=== PATIENT | male | born 1980 | race Two or more races ===

== ENCOUNTER 2025-07-07 20:03 | Emergency (ER) | payer MEDICAID, SELFPAY ==
[2025-07-07 20:04] VITALS: BMI 24.3
[2025-07-07 20:59] VITALS: BP 177/91; PULSE 89; RESP 20; TEMP 36.5; O2SAT 100
--- NOTE | 2025-07-07 21:16 | PD.EDSKIN ---
ED Skin Abcess FB-RME/HPI General Chief complaint: Skin/Abscess/Foreign Body Stated complaint: HEMORRHOIDS, BLEEDING Time Seen by Provider: 07/07/25 20:42 Arrival date/time: 07/07/25 20:03 This is a case of 44-year-old male with history of hemorrhoids came in in the emergency room due to rectal pain today after bowel movement patient states that initially he had blood in the stool but resolved to arrival in the emergency room patient denies any abdominal denies any nausea vomiting constipation or diarrhea patient denies sore throat at the time of exam as stated in the triage note patient has no other symptoms noted Limitations: no limitations Related Data Previous Rx's ?Medication ?Instructions ?Recorded hydrocodone 5 mg-acetaminophen 325 1 tab PO BID PRN pain #14 tabs 04/22/20 mg tablet (Smoot) ibuprofen 800 mg tablet 800 mg PO TID PRN pain #30 tabs 04/22/20 sulfamethoxazole 800 1 tab PO BID #20 tabs 04/22/20 mg-trimethoprim 160 mg tablet (Bactrim DS) hydrocortisone acetate 25 mg 25 mg LA BID #12 ea 07/07/25 rectal suppository (Anusol-HC) pramoxine 1 % topical foam 1 applic LA BID PRN hemorrhoid 07/07/25 pain #15 grams tramadol 50 mg tablet 50 mg PO Q8H PRN pain #12 tabs 07/07/25 Allergies Allergy/AdvReac Type Severity Reaction Status Date / Time No Known Allergies Allergy Verified 12/02/19 00:06 Review of Systems Review of Systems Systems Reviewed: All systems reviewed, normal except as documented Constitutional Constitutional: Reports system reviewed and no additional complaints, except as documented and Reports as per HPI Cardiovascular Cardiovascular: Reports system reviewed and no additional complaints, except as documented and Reports as per HPI Respiratory Respiratory: Reports system reviewed and no additional complaints, except as documented and Reports as per HPI Gastrointestinal Gastrointestinal: Reports system reviewed and no additional complaints, except as documented and Reports as per HPI Musculoskeletal Musculoskeletal: Reports system reviewed and no additional complaints, except as documented and Reports as per HPI Neurologic Neurologic: Reports system reviewed and no additional complaints, except as documented and Reports as per HPI Past Medical History Past Medical History NEUROLOGIC: Negative Neurological Disorders CARDIAC: Negative Cardiac Disorders or Congestive Heart Failure RESPIRATORY: Negative Chronic Obstructive Pulmonary Disease (COPD) or Asthma GENITOURINARY: Negative Renal Disease ENDOCRINE: Negative Diabetes Mellitus Type 1 or Diabetes Mellitus Type 2 HEMATOLOGIC: Negative Sickle Cell Disease Social History SMOKING STATUS: Never smoker ED Exam General Limitations: Present no limitations General appearance: Present alert, in no apparent distress and other (Patient is awake alert oriented not in distress nontoxic looking well-hydrated well-nourished) Head Head exam: Present atraumatic, normocephalic and normal inspection Eye Eye exam: Present normal appearance, PERRL and EOMI ENT ENT exam: Present normal exam, normal oropharynx and mucous membranes moist Neck Neck exam: Present normal inspection, full ROM and trachea midline; Absent tenderness, meningismus, lymphadenopathy or thyromegaly Chest Chest inspection: Present normal inspection and symmetric chest wall rise; Absent tenderness Respiratory Respiratory exam: Present normal lung sounds bilaterally; Absent respiratory distress, wheezes, stridor, accessory muscle use or prolonged expiratory phase Cardiovascular Cardiovascular exam: Present regular rate, normal rhythm and normal heart sounds; Absent bradycardia, tachycardia, irregular rhythm, systolic murmur or diastolic murmur Abdominal Exam Abdominal exam: Present soft and normal bowel sounds; Absent distention, tenderness, guarding, rebound, rigidity, diminished bowel sounds, hyperactive bowel sounds, hypoactive bowel sounds, organomegaly, obturator sign, Hansen's sign, Rovsing's sign, tenderness at [place]'s Point or hernia Rectal Exam Rectal exam: Present normal rectal tone, hemorrhoids (External hemorrhoid noted at 6 o'clock position nonthrombosed no abscess) and tenderness; Absent heme (-) stool, heme (+) stool, black stool, bloody stool or mass Extremities Exam Extremities exam: Present normal inspection and full ROM Back Exam Back exam: Present normal inspection and full ROM Neurological Exam Neurological exam: Present alert, oriented X3, CN II-XII intact, normal gait and reflexes normal; Absent motor sensory deficit Psychiatric Psychiatric exam: Present normal affect and normal mood Skin Skin exam: Present warm, dry, intact and normal color Course Quality Measures none Vital Signs Vital signs: Vital Signs Temperature 97.7 F 07/07/25 20:59 Pulse Rate 89 07/07/25 20:59 Respiratory Rate 20 07/07/25 20:59 Blood Pressure 177/91 H 07/07/25 20:59 Pulse Oximetry (%) 100 07/07/25 20:59 Oxygen Delivery Method Room Air 07/07/25 20:59 Oxygen saturation 100% BP after morphine was rechecked and noted to be 155/75 Skin / Abscess / Foreign Body MDM Narrative MDM Narrative:: This is a case of 44-year-old male with history of hemorrhoids came in in the emergency room due to rectal pain today after bowel movement patient states that initially he had blood in the stool but resolved to arrival in the emergency room patient denies any abdominal denies any nausea vomiting constipation or diarrhea patient denies sore throat at the time of exam as stated in the triage note patient has no other symptoms noted physical examination patient is awake alert oriented not in distress nontoxic looking well-hydrated well-nourished abdominal exam is benign nonsurgical no guarding no rebound no rigidity negative psoas negative straight or negative Rovsing's negative [place]'s negative Hansen sign negative CVA tenderness rectal exam was performed by restaurant manager RN noted no fissure no lesion but with external hemorrhoid at 6 o'clock position which I unable to reduce it no thrombosed hemorrhoid noted no bleeding no abscess no stool noted the rest of the examination were normal due to unable to reduce it due to pain and also the patient refused patient only wanted to relieve the pain thus morphine IM was given and want to be discharged I spoke to Dr. Sutherland a colorectal surgeon and I was told and instructed to follow-up with his clinic tomorrow for reevaluation and follow-up with external hemorrhoid discussed with the patient guarding the treatment plan and discharge and agreed patient was discharged with Anusol and pramoxine for rectal pain and for hemorrhoid and tramadol as needed for pain Patient was discharged with comfortable condition walking with stable gait. Patient verbalized no further complains explained diagnosis and answered patient question. Patient is comfortable with the proposed management plan including the need to follow up with his/her primary care physician and any specialist if applicable Discussed patient for any urgent condition or worsening sx, He/She needed to go to emergency room immediately or call 911. Patient acknowledge the responsibility to follow up as instructed and to monitor her/his symptoms. For any persistence of the symptoms for more than 3-5 days return precaution advised. Discussed the result of the test and was given printed discharge instruction Patient data External records reviewed:: [facility] previous records Clinical information provided by:: patient Social determinants that could affect healthcare access:: none Patient has the following chronic illnesses:: None How is presenting disease/condition affected by chronic disease/condition?: no chronic disease Evaluation data The following diagnostics were reviewed and interpreted by me:: other (specify) (None) Lab and/or radiology exams considered but not ordered:: None Interpretation Summary: None Medications / Prescriptions Medications or Prescriptions considered but not ordered:: Given Medication administrations:: Given Consultations Consultation(s) initiated? (list below): No Diagnosis Skin/Abscess Differential Diagnosis: other (External hemorrhoid) Most likely diagnosis given after review of the tests above:: External hemorrhoid Admission Indicated Admission indicated?: not indicated Explain why admission is indicated or not indicated:: Not indicated Admission Request Was there a request for admission?: No Admission Attestation Admission request attestation: Not indicated Disposition Plan Disposition Plan: Discharge Discharge Attestation Discharge Attestation: The patient and all family members were given an opportunity to ask questions and understood the discharge instructions. Discharge instructions specifically effects, indications for sooner follow up or return to the emergency department, and the expected course of current diagnosis. Patient condition: Stable Discharge Plan Plan Patient Disposition: HOME (Self Care) Patient condition on transfer: Stable Prescriptions/Referrals Prescriptions/Med Rec: New hydrocortisone acetate [Anusol-HC] 25 mg suppository 25 mg LA BID Qty: 12 0RF pramoxine 1 % foam 1 applic LA BID PRN (Reason: hemorrhoid pain) Qty: 15 0RF tramadol 50 mg tablet 50 mg PO Q8H MDD max 4 tabs per day PRN (Reason: pain) Qty: 12 0RF No Action sulfamethoxazole-trimethoprim [Bactrim DS] 800-160 mg tablet 1 tab PO BID Qty: 20 0RF ibuprofen 800 mg tablet 800 mg PO TID PRN (Reason: pain) Qty: 30 0RF hydrocodone-acetaminophen [Smoot] 5-325 mg tablet 1 tab PO BID MDD 4 PRN (Reason: pain) Qty: 14 0RF Referrals: Dunia Sutherland MD [Physician, General Surgery] - 07/08/25 Referral Note: For further evaluation and treatment of your external hemorrhoid Problem List Clinical Impression: External hemorrhoids Patient/Caregiver Discharge Instructions Education Materials: Treating Hemorrhoids: Self-Care, Understanding Hemorrhoids, ED Hemorrhoids Additional Instructions: It is very important to follow-up with Dr. Sutherland colorectal surgeon for your external hemorrhoid follow-up with your primary care physician in 2 days for reevaluation and to be referred to colorectal surgeon for further evaluation and treatment of external hemorrhoid worsening symptoms or any emergent concern return to the emergency room immediately or call 911 warm sitz bath is advised high-fiber diet to prevent constipation take the medication as directed Print Language: Japanese Stand Alone Forms: Pilar Award Info., Patient Portal Info Letter PA/RECLAMATION KETTLE TENDER Supervising Physician PA/RECLAMATION KETTLE TENDER Supervising Physician: Dr. Holt
[2025-07-07] MEDS: MORPHINE SULF INJ 4 MG/ML VIAL IM (21:39)
== END 2025-07-08 01:00 | disposition home or self-care (01) ==
LOC: SERX 22:39
PROVIDERS: Emergency Provider Emergency Medicine
DX: K64.4 Residual hemorrhoidal skin tags (principal)
CPT/HCPCS: 96372; 99282; J2270